=== PATIENT | female | born 1980 | race Caucasian/White ===

== ENCOUNTER 2018-06-19 18:59 | Inpatient (IN) ==
[2018-06-19 21:41] LABS: Apearance,Urine Slightly Hazy (Clear); Bacteria,Urine Occasional /HPF (Few); Bilirubin,Urine Negative (Negative); Blood, Urine Large mg/dL (Negative); Glucose,Urine (UA) Negative (Negative); Ketones,Urine Negative (Negative); Mucus,Urine Many /LPF (Occasional); Nitrite,Urine Negative (Negative); Protein,Urine 30 MG/DL; RBC,Urine 260 /HPF (0-4); Squamous Epithelial Cell,Urine Occasional /HPF (0-10); Urine Color Amber (Yellow); Urine Specific Gravity 1.023 (1.001-1.035); WBC,Urine 44 /HPF (0-6)
[2018-06-19] MEDS ORDERED: KETOROLAC 30 MG/1 ML VIAL IV STA (22:28)
[2018-06-19] MEDS ORDERED: ONDANSETRON 4 MG/2 ML VIAL IV STA (22:28)
[2018-06-19] MEDS ORDERED: SODIUM CHLORIDE 0.9% 1,000 ML IV STA (22:28)
[2018-06-19] MEDS ORDERED: cefTRIAXone 1,000 MG in SODIUM CHLORIDE 0.9% 100 ML IV STA (22:33)
[2018-06-19 22:43] LABS: Basophils # 0.1 10*3/uL (0.0-0.2); Basophils % 0.3 % (0.0-0.8); Eosinophils # 0.1 10*3/uL (0.0-0.87); Eosinophils % 0.3 % (0.00-10.9); Hematocrit 41.6 VOL% (35.7-47.0); Hemoglobin 13.6 GM/DL (12.0-16.0); Immature Granulocytes % 0.8 %; Immature Granulocytes Absolute 0.16 #; Lymphocytes % 10.3 % (21.3-54.2); Mean Corpuscular HGB Conc 32.7 GM/DL (32-36); Mean Corpuscular Volume 93.1 FL (87-102); Mean Platelet Volume 8.8 FL (9.6-12.0); Monocytes % 8.7 % (1.7-12.7); Neutrophils % 79.6 % (38.7-73.9); Platelet Count 351 T/CUMM (130-400); Red Blood Count 4.47 MC/CUMM (3.8-5.5); Red Cell Distribution Width 12.2 % (9.3-17.3); White Blood Count 19.3 T/CUMM (4-12)
[2018-06-19] MEDS ORDERED: metroNIDAZOLE INJ 500 MG in PREMIX 1 EACH IV STA (23:54)
[2018-06-19] MEDS ORDERED: PIPERACILLIN/TAZOBACTAM 3,375 MG in SODIUM CHLORIDE 0.9% 100 ML IV STA (23:54)
[2018-06-20] MEDS ORDERED: metroNIDAZOLE INJ 500 MG in PREMIX 1 EACH IV SCH
[2018-06-20 00:25] LABS: Albumin 3.6 G/DL (3.4-5.0); Bilirubin,Total 1.2 MG/DL (0.2-1.0); Calcium 8.4 MG/DL (8.5-10.1); Total Protein 7.6 G/DL (6.4-8.3)
[2018-06-20] MEDS ORDERED: ONDANSETRON 4 MG/2 ML VIAL IV PRN (01:39)
[2018-06-20] MEDS ORDERED: SODIUM CHLORIDE 0.9% 1,000 ML IV ONE (01:54)
[2018-06-20 02:59] LABS: Basophils # 0.1 10*3/uL (0.0-0.2); Basophils % 0.3 % (0.0-0.8); Eosinophils # 0.1 10*3/uL (0.0-0.87); Eosinophils % 0.5 % (0.00-10.9); Hematocrit 37.5 VOL% (35.7-47.0); Hemoglobin 12.3 GM/DL (12.0-16.0); Immature Granulocytes % 0.8 %; Immature Granulocytes Absolute 0.15 #; Lymphocytes # 2.6 10*3/uL (1.4-4.0); Lymphocytes % 14.6 % (21.3-54.2); Mean Corpuscular HGB Conc 32.8 GM/DL (32-36); Mean Corpuscular Volume 93.8 FL (87-102); Neutrophils % 74.8 % (38.7-73.9); Platelet Count 317 T/CUMM (130-400); Red Cell Distribution Width 12.3 % (9.3-17.3); White Blood Count 17.7 T/CUMM (4-12)
[2018-06-20] MEDS ORDERED: MAGNESIUM SULF RIDER 1 GM in PREMIX 1 EACH IV ONE (03:00)
[2018-06-20 03:17] LABS: Osmolality,Calculated 271.8 MOS/KG (273-304); Total Protein 6.5 G/DL (6.4-8.3)
[2018-06-20 03:25] LABS: Risk Ratio 2.93; Thyroid Stimulating Hormone 1.51 uIU/ml (0.358-3.74)
[2018-06-20 04:16] LABS: HIV Antigen/Antibody Result Nonreactive (Nonreactive); Hepatitis C Virus Ab Quant 0.06 Index; Hepatitis C Virus Ab Result Negative (Negative)
[2018-06-20 04:19] LABS: Hepatitis B Core IgM Quant < 0.05 Index; Hepatitis B Surface Ag Quant < 0.10 Index; Hepatitis B Surface Ag Result Negative (Negative); Hepatitis C Virus Ab Quant 0.05 Index; Hepatitis C Virus Ab Result Negative (Negative)
[2018-06-20] MEDS: SODIUM CHLORIDE 0.9% 1,000 ML IV SCH ×2 (04:20→21:42)
[2018-06-20 04:34] LABS: Barbiturates Screen,Urine Negative (Negative); Benzodiazepines Screen,Urine Negative (Negative); Cannabinoid Screen,Urine Negative (Negative); Opiate Screen,Urine Negative (Negative); Phencyclidine Screen,Urine Negative (Negative)
[2018-06-20] MEDS: PIPERACILLIN/TAZOBACTAM 3,375 MG in SODIUM CHLORIDE 0.9% 100 ML IV SCH ×2 (04:47→14:12)
[2018-06-20] MEDS: KETOROLAC 15 MG/1 ML VIAL IV SCH ×4 (05:01→21:43)
[2018-06-20] MEDS ORDERED: MAGNESIUM SULF RIDER 2 GM in PREMIX 1 EACH IV ONE (05:53)
[2018-06-20] MEDS: ENOXAPARIN 40 MG/0.4 ML SYRINGE SUBCUT SCH (09:36)
[2018-06-20] MEDS: POTASSIUM CHLORIDE 20 MEQ TABLET PO PRN ×3 (09:37→15:46)
[2018-06-20] MEDS: PANTOPRAZOLE 40 MG TABLET PO SCH (09:44)
[2018-06-20] MEDS ORDERED: AZITHROMYCIN 250 MG TABLET PO ONE (16:09)
[2018-06-20] MEDS: CLINDAMYCIN INJ 900 MG in PREMIX 1 EACH IV SCH (16:48)
[2018-06-20] MEDS: cefOXitin 2,000 MG in SYRINGE 1 EACH IV SCH (18:21)
[2018-06-20] MEDS ORDERED: cefTRIAXone 1,000 MG in SYRINGE 1 EACH IV SCH (21:00)
[2018-06-20] MEDS: GENTAMICIN INJ 400 MG in SODIUM CHLORIDE 0.9% 100 ML IV SCH (21:43)
[2018-06-21] MEDS: cefOXitin 2,000 MG in SYRINGE 1 EACH IV SCH ×4 (00:03→21:26)
[2018-06-21] MEDS: CLINDAMYCIN INJ 900 MG in PREMIX 1 EACH IV SCH ×3 (01:12→17:35)
[2018-06-21] MEDS: KETOROLAC 15 MG/1 ML VIAL IV SCH ×4 (04:27→21:20)
[2018-06-21 08:10] LABS: Basophils % 0.2 % (0.0-0.8); Eosinophils # 0.1 10*3/uL (0.0-0.87); Eosinophils % 0.8 % (0.00-10.9); Hematocrit 32.1 VOL% (35.7-47.0); Hemoglobin 10.5 GM/DL (12.0-16.0); Immature Granulocytes % 0.6 %; Immature Granulocytes Absolute 0.07 #; Lymphocytes # 1.7 10*3/uL (1.4-4.0); Lymphocytes % 13.9 % (21.3-54.2); Mean Corpuscular HGB Conc 32.7 GM/DL (32-36); Mean Corpuscular Volume 96.1 FL (87-102); Mean Platelet Volume 9.2 FL (9.6-12.0); Monocytes % 10.4 % (1.7-12.7); Neutrophils % 74.1 % (38.7-73.9); Platelet Count 271 T/CUMM (130-400); Red Blood Count 3.34 MC/CUMM (3.8-5.5); Red Cell Distribution Width 12.4 % (9.3-17.3); White Blood Count 12.6 T/CUMM (4-12)
[2018-06-21 08:35] LABS: Albumin 2.3 G/DL (3.4-5.0); Bilirubin,Total 0.8 MG/DL (0.2-1.0); Calcium 8.2 MG/DL (8.5-10.1); Osmolality,Calculated 278.3 MOS/KG (273-304); Total Protein 5.6 G/DL (6.4-8.3)
[2018-06-21] MEDS: PANTOPRAZOLE 40 MG TABLET PO SCH (09:42)
[2018-06-21] MEDS: ENOXAPARIN 40 MG/0.4 ML SYRINGE SUBCUT SCH (11:29)
[2018-06-21] MEDS: SODIUM CHLORIDE 0.9% 1,000 ML IV SCH (15:05)
[2018-06-21] MEDS: ACETAMINOPHEN 325 MG TABLET PO PRN (17:36)
[2018-06-21] MEDS: GENTAMICIN INJ 400 MG in SODIUM CHLORIDE 0.9% 100 ML IV SCH (21:29)
[2018-06-22] MEDS: CLINDAMYCIN INJ 900 MG in PREMIX 1 EACH IV SCH ×3 (00:15→17:31)
[2018-06-22] MEDS: cefOXitin 2,000 MG in SYRINGE 1 EACH IV SCH ×4 (03:11→20:42)
[2018-06-22] MEDS: KETOROLAC 15 MG/1 ML VIAL IV SCH ×4 (03:12→20:38)
[2018-06-22 05:08] LABS: Basophils % 0.3 % (0.0-0.8); Eosinophils # 0.3 10*3/uL (0.0-0.87); Eosinophils % 2.2 % (0.00-10.9); Hematocrit 30.5 VOL% (35.7-47.0); Immature Granulocytes % 0.8 %; Lymphocytes # 2.5 10*3/uL (1.4-4.0); Lymphocytes % 19.3 % (21.3-54.2); Mean Corpuscular HGB Conc 32.8 GM/DL (32-36); Mean Corpuscular Volume 95.6 FL (87-102); Mean Platelet Volume 9.9 FL (9.6-12.0); Monocytes % 7.8 % (1.7-12.7); Neutrophils % 69.6 % (38.7-73.9); Platelet Count 287 T/CUMM (130-400); Red Blood Count 3.19 MC/CUMM (3.8-5.5); Red Cell Distribution Width 12.5 % (9.3-17.3); White Blood Count 12.8 T/CUMM (4-12)
[2018-06-22 05:33] LABS: Calcium 7.7 MG/DL (8.5-10.1); Osmolality,Calculated 281.1 MOS/KG (273-304)
[2018-06-22 05:36] LABS: Albumin 2.3 G/DL (3.4-5.0); Bilirubin,Direct 0.21 MG/DL (0.0-0.20); Bilirubin,Indirect 0.3 MG/DL (0.0-1.0); Bilirubin,Total 0.5 MG/DL (0.2-1.0); Total Protein 5.5 G/DL (6.4-8.3)
[2018-06-22] MEDS: SODIUM CHLORIDE 0.9% 1,000 ML IV SCH (07:23)
[2018-06-22] MEDS: ENOXAPARIN 40 MG/0.4 ML SYRINGE SUBCUT SCH (08:54)
[2018-06-22] MEDS: PANTOPRAZOLE 40 MG TABLET PO SCH (08:55)
[2018-06-22] MEDS: ACETAMINOPHEN 325 MG TABLET PO PRN (11:49)
[2018-06-22] MEDS: GENTAMICIN INJ 400 MG in SODIUM CHLORIDE 0.9% 100 ML IV SCH (20:46)
[2018-06-23] MEDS: ACETAMINOPHEN 325 MG TABLET PO PRN (00:59)
[2018-06-23] MEDS: CLINDAMYCIN INJ 900 MG in PREMIX 1 EACH IV SCH ×2 (01:01→10:19)
[2018-06-23] MEDS: cefOXitin 2,000 MG in SYRINGE 1 EACH IV SCH ×2 (02:50→10:19)
[2018-06-23] MEDS: KETOROLAC 15 MG/1 ML VIAL IV SCH ×2 (02:53→10:18)
[2018-06-23] MEDS: SODIUM CHLORIDE 0.9% 1,000 ML IV SCH ×2 (02:56→11:27)
[2018-06-23 05:54] LABS: Basophils # 0.1 10*3/uL (0.0-0.2); Basophils % 0.4 % (0.0-0.8); Eosinophils # 0.2 10*3/uL (0.0-0.87); Eosinophils % 1.8 % (0.00-10.9); Hematocrit 30.4 VOL% (35.7-47.0); Immature Granulocytes % 0.9 %; Immature Granulocytes Absolute 0.12 #; Lymphocytes # 2.3 10*3/uL (1.4-4.0); Lymphocytes % 17.8 % (21.3-54.2); Mean Corpuscular HGB Conc 32.9 GM/DL (32-36); Mean Corpuscular Volume 94.4 FL (87-102); Mean Platelet Volume 9.9 FL (9.6-12.0); Monocytes % 7.5 % (1.7-12.7); Neutrophils % 71.6 % (38.7-73.9); Platelet Count 322 T/CUMM (130-400); Red Blood Count 3.22 MC/CUMM (3.8-5.5); Red Cell Distribution Width 12.4 % (9.3-17.3); White Blood Count 12.7 T/CUMM (4-12)
[2018-06-23] MEDS: PANTOPRAZOLE 40 MG TABLET PO SCH (10:18)
[2018-06-23] MEDS: ENOXAPARIN 40 MG/0.4 ML SYRINGE SUBCUT SCH (10:19)
[2018-06-23 11:58] VITALS: BP 126/73
[2018-06-26 13:55] LABS: Source VAGINAL
== END 2018-06-23 12:05 | disposition home or self-care (01) | DRG 758 ==
LOC: N.ED 18:59 → N.EDINP 06-20 01:40 → SUATTDRO 06-20 01:40 → N.2E 06-20 02:24
PROVIDERS: ADMIT Internal Medicine; ATTEND Family Medicine